=== PATIENT | female | born 1995 | race African-American/Black ===

== ENCOUNTER 2016-12-01 15:33 | Emergency (ER) | payer OTHER ==
[~2016-12-01] VITALS: Ht 162.6 cm; Wt 54.4 kg
--- NOTE | 2016-12-01 17:42 | Emergency Room Report ---
History of Present Illness General Chief Complaint: General Complaint Source: Patient Present Illness HPI 21-year-old female presents to emergency Department complaining of cough, nasal congestion, rhinorrhea, intermittent bodyaches subjective chills no fevers denies recent travel or ill contacts. Patient states her symptoms have been for 2 days. She denies neck pain or stiffness.denies nausea or vomiting. Patient denies abdominal pain or rashes. She states that she feels increased lethargy. Denies CP, Palpitations, LOC, AMS, dizziness, Changes in Vision, Sensation, paresthesias, or a sudden severe headache. Allergies: Coded Allergies: No Known Allergies (Unverified , 12/01/16) Patient History Past Medical History: see triage record Past Surgical History: none Pertinent Family History: none Last Menstrual Period: 09/26/16 Now: No Immunizations: UTD Reviewed Nursing Documentation: PMH: Agreed, PSxH: Agreed Nursing Documentation-PMH Past Medical History: No Stated History Review of Systems All Other Systems: negative except mentioned in HPI Physical Exam Vital Signs Date Time Temp Pulse Resp B/P Pulse Ox O2 Delivery O2 Flow Rate FiO2 12/01/16 16:27 98.2 98 16 110/76 100 Room Air Sp02 EP Interpretation: reviewed, normal General Appearance: no apparent distress, alert, GCS 15, non-toxic Head: normocephalic, atraumatic Eyes: bilateral eye PERRL, bilateral eye normal inspection ENT: hearing grossly normal, normal pharynx, no angioedema, normal voice, TMs + canals normal, uvula midline, nasal congestion Neck: full range of motion, no meningismus, no bony tend, supple/symm/no masses Respiratory: chest non-tender, lungs clear, normal breath sounds, speaking full sentences Cardiovascular #1: regular rate, rhythm, no edema Musculoskeletal: back normal, gait/station normal, normal range of motion, non- tender, no calf tenderness Neurologic: alert, oriented x3, responsive, motor strength/tone normal, sensory intact, speech normal Psychiatric: judgement/insight normal, memory normal, mood/affect normal, no suicidal/homicidal ideation Skin: normal color, no rash, warm/dry, well hydrated Lymphatic: no adenopathy Medical Decision Making PA Attestation Dr. Babin is my supervising Physician whom patient management has been discussed with. Diagnostic Impression: Primary Impression: Upper respiratory infection with cough and congestion Additional Impression: Upper respiratory infection, viral ER Course 21-year-old female presents to emergency Department complaining of cough, nasal congestion, rhinorrhea, intermittent bodyaches subjective chills no fevers denies recent travel or ill contacts. Patient states her symptoms have been for 2 days. She denies neck pain or stiffness. Patient denies abdominal pain or rashes. She states that she feels increased lethargy. Ddx considered but are not limited to URI, pneumonia, PE, strep pharyngitis, meningitis. Vital signs: Pt. is afebrile, the remaining VS are WNL H&PE are most consistent with URI- no meningeal signs, oropharynx is not involved, no evidence of bacterial infection at this time. ORDERS: none required at this time, the diagnosis is clinical ED INTERVENTIONS: None required at this time. --PT. EDUCATION: Discussed antibiotic resistance with inappropriate prescribing of antibiotics for viral illnesses. Discussed signs and symptoms to indicate viral illness versus bacterial illness. DISCHARGE: At this time pt. is stable for d/c to home. Will provide printed patient care instructions, and any necessary prescriptions. Care plan and follow up instructions have been discussed with the patient prior to discharge. Last Vital Signs Date Time Temp Pulse Resp B/P Pulse Ox O2 Delivery O2 Flow Rate FiO2 12/01/16 16:27 98.2 98 16 110/76 100 Room Air Disposition: HOME, SELF-CARE Condition: Stable Referrals: [facility],REFERRING (PCP) Departure Forms: Return to Work Return to Work Date: Dec 04, 2016 Work Restrictions: None Return to Full Activity: Dec 04, 2016 Patient Instructions: Upper Respiratory Infection, Adult, [id number] Additional Instructions: Take medications as directed. Follow up with PCP in 3-5 days Return sooner to ED if new symptoms occur, or current symptoms become worse. Do not drink alcohol, drive, or operate heavy machinery while taking cough syrup as this may cause drowsiness. - Please note that this Emergency Department Report was dictated using [employer] technology software, occasionally this can lead to erroneous entry secondary to interpretation by the dictation equipment. [place] Love Dec 01, 2016 17:42
[2016-12-01] MEDS ORDERED: PROMETHAZINE-C118 M1 ORAL (17:44)
[2016-12-01] MEDS ORDERED: GUAIFENESIN1200 MG PO (17:44)
[2016-12-01] MEDS ORDERED: TYLENOL EXTRA500 MG ORAL (17:44)
[2016-12-01] MEDS ORDERED: NEXAFED30 MG ORAL (17:44)
[2016-12-01 17:52] VITALS: BP 110/76
== END 2016-12-01 17:52 | disposition home or self-care (01) ==
LOC: EMR 17:22
DX: J06.9 Acute upper respiratory infection, unspecified (principal); R05 Cough; R09.81 Nasal congestion; J34.89 Other specified disorders of nose and nasal sinuses; R52 Pain, unspecified; R53.83 Other fatigue
CPT/HCPCS: 99282